=== PATIENT | female | born 1990 | race African-American/Black ===

== ENCOUNTER → 2016-12-05 | Outpatient (CLI) | payer OTHER ==
[~2016-12-05] MED LIST: ZITH250T PO
--- NOTE | 2016-12-11 09:54 | RSPPFT ---
DATE OF PROCEDURE: 12/05/16 COMMENTS: Spirometry shows FVC of 2.3 at 66% of predicted, FEV1 of 2.0 at 72%, FEV1/FVC ratio is normal. Flow is decreased at FEF 25, FEF 50, FEF 75 and FEF 25-75. There is a mild response after acutely inhaled bronchodilator treatment. Lung volumes show residual volume is increased. TLC is normal. Diffusion capacity is normal. Flow volume loop indicates a normal pattern. IMPRESSION: 1. Mild small airways obstructive lung disease. 2. Mild response after bronchodilator treatment. 3. Lung volumes show hyperinflation and air trapping. 4. Diffusion capacity is normal.
== END ==
LOC: HRSP 12:57
PROVIDERS: ATTEND Specialist
DX: J45.20 Mild intermittent asthma, uncomplicated (principal); R06.00 Dyspnea, unspecified
CPT/HCPCS: 94060; 94726; 94729